=== PATIENT | female | born 2000 | race Caucasian/White ===

== ENCOUNTER 2021-08-28 18:33 | Emergency (ER) | payer SELFPAY ==
[2021-08-28 18:53] VITALS: BP 116/78; PULSE 78; RESP 16; TEMP 36.6; O2SAT 99
[2021-08-28 19:00] VITALS: BP 116/78; PULSE 78; RESP 16; TEMP 36.6; O2SAT 99
--- NOTE | 2021-08-28 19:12 | ED.WOUNDLAC ---
HPI - Wound/Laceration General Chief Complaint: Wound/Laceration Stated Complaint: spider bite Time Seen by Provider: 08/28/21 18:59 Source: patient and RN notes reviewed Mode of arrival: ambulatory Limitations: no limitations History of Present Illness HPI narrative: Patient presents today complaining of a possible spider bite to her left knee yesterday morning. Reports the area is painful today and has become more red when she walks. It also itches. She currently rates her pain 4/10 and has tried no [id number] treatment prior to arrival. No recent antibiotic use. Related Data Allergies Allergy/AdvReac Type Severity Reaction Status Date / Time No Known Allergies Allergy Verified 08/28/21 18:35 Review of Systems Review of Systems: CONSTITUTIONAL: Denies body aches, fever, chills, or sweats. EYES: Denies visual changes, redness, or discharge. ENT: Denies rhinorrhea, congestion, sore throat, or otalgia. CARDIOVASCULAR: Denies chest pain, palpitations, or edema. RESPIRATORY: Denies cough or dyspnea. GASTROINTESTINAL: Denies abdominal pain, nausea, vomiting, or diarrhea. GENITOURINARY: Denies dysuria or hematuria. SKIN: Denies rash, itching.+ Insect bite to left knee MUSCULOSKELETAL: Denies back pain, joint pain, or myalgia. NEUROLOGIC: Denies headache, numbness, tingling, or weakness. PSYCH: Denies depression or anxiety. [facility] Past Medical History Medical History (Updated 08/28/21 @ 19:15 by Rocio Swift, [facility], ) Dyana's thyroiditis Comments At time of signature, I have reviewed and agree with nursing past medical, surgical, social and family history unless otherwise noted. Please see nursing chart for further information. There is no relevant family history pertinent to the presenting complaint Exam Narrative: GENERAL: Well-appearing, well-nourished, and in no acute distress. HEAD: Normocephalic, atraumatic. EYES: EOMI. No redness or drainage. Conjunctivae normal. ENT: Mucous membranes pink and moist. NECK: Normal AROM. CHEST: No respiratory distress. EXTREMITIES: Normal range of motion. No edema. SKIN: Warm, dry, no rash. Capillary refill normal. Normal skin turgor. 5 cm area of erythema to the left lateral knee that is indurated. Possible puncture wound in the center. Mildly tender to palpation. Full range of motion of the knee. No edema to the knee. Distal sensation intact. Capillary refill normal. NEURO: No focal deficits. Alert and oriented x3. Gait steady. PSYCH: Normal affect. No signs of depression or anxiety. Course Vital Signs Vital signs: Vital Signs Temperature 97.9 F 08/28/21 18:53 Pulse Rate 78 08/28/21 18:53 Respiratory Rate 16 08/28/21 18:53 Blood Pressure 116/78 08/28/21 18:53 Pulse Oximetry 99 08/28/21 18:53 Temperature 97.9 F 08/28/21 19:00 Pulse Rate 78 08/28/21 19:00 Respiratory Rate 16 08/28/21 19:00 Blood Pressure 116/78 08/28/21 19:00 Pulse Oximetry 99 08/28/21 19:00 Reviewed the MDM - Wound/Laceration Differential Diagnosis Differential diagnosis: Likely abscess and other (Insect bite, cellulitis) Critical Care Time Critical Care Time Critical Care Time: No Discharge Plan Discharge Clinical Impression: Infected insect bite Qualifiers: Encounter type: initial encounter Qualified Code(s): W57.XXXA - Bitten or stung by nonvenomous insect and other nonvenomous arthropods, initial encounter Patient Disposition: Home, Self-Care Condition: Stable Instructions: Antibiotic Form, Insect Bite or Sting (ED) Additional Instructions: Please take the Bactrim as prescribed until gone. Take ibuprofen or Aleve for pain and inflammation. Go to the ER immediately if you start running a fever or see red streaking up your leg. Patient Language: [place] Prescriptions: New sulfamethoxazole-trimethoprim [Bactrim DS] 800-160 mg tablet 1 tablet PO Q12H 10 Days Qty: 20 RF: 0 Follow-up/Referrals: UNKNOWN,D
== END 2021-08-28 19:13 | disposition home or self-care (01) ==
PROVIDERS: Emergency Provider Nurse Practitioner
DX: S80.262A Insect bite (nonvenomous), left knee, initial encounter (principal); W57.XXXA Bitten or stung by nonvenomous insect and other nonvenomous arthropods, initial encounter; E06.3 Autoimmune thyroiditis
CPT/HCPCS: 99203; G0463